=== PATIENT | male | born 1950 | race Caucasian/White ===

== ENCOUNTER 2020-03-02 10:11 | Inpatient (IN) | payer MEDICARE, BC ==
[~2020-03-02] VITALS: Ht 167.6 cm; Wt 81.9 kg
[2020-03-02 10:38] LABS: BASOPHILS ABSOLUTE AUTO 0.06 K/mm3 (0.00-0.23); BASOPHILS PERCENT AUTO 1 % (0-2); EOSINOPHILS ABSOLUTE AUTO 0.11 K/mm3 (0.00-0.68); EOSINOPHILS PERCENT AUTO 1 % (0-6); Hematocrit 45.7 % (37.0-53.0); IMMATURE GRAN ABSOLUTE AUTO 0.05 K/mm3 (0.00-0.10); IMMATURE GRAN PERCENT AUTO 1 % (0-1); LYMPHOCYTES ABSOLUTE AUTO 1.82 K/mm3 (0.84-5.20); LYMPHOCYTES PERCENT AUTO 22 % (21-46); MONOCYTES ABSOLUTE AUTO 0.61 K/mm3 (0.16-1.47); MONOCYTES PERCENT AUTO 7 % (4-13); Mean Corpuscular HGB 30.4 pg (26.0-34.0); Mean Corpuscular HGB Conc 32.8 g/dL (31.5-36.5); Mean Corpuscular Volume 93 fL (80-100); Mean Platelet Volume 9.8 fL (9.1-12.4); NEUTROPHILS ABSOLUTE AUTO 5.63 K/mm3 (1.96-9.15); NEUTROPHILS PERCENT AUTO 68 % (41-73); Platelet Count 250 K/mm3 (150-400); RDW Coefficient Variation 12.6 % (11.7-14.2); RDW Standard Deviation 42.9 fL (35.1-46.3); Red Blood Cell Count 4.94 M/mm3 (4.30-5.90); White Blood Cell Count 8.28 K/mm3 (4.00-11.30)
[2020-03-02 10:49] LABS: Alanine Aminotransfer (ALT/SGP 57 U/L (12-78); Albumin, Blood 4.1 g/dL (3.4-5.0); Albumin/Globulin Ratio 1.1 (0.8-1.8); Anion Gap 5 mmol/L (6-16); Aspartate Aminotrans (AST/SGOT 45 U/L (12-37); Bilirubin, Total 0.5 mg/dL (0.1-1.0); Blood Urea Nitrogen 15 mg/dL (8-24); Bun/Creatinine Ratio 14.7 (12.0-20.0); CO2, Blood 26 mmol/L (21-32); Calcium, Blood 9.3 mg/dL (8.5-10.1); Chloride, Blood 110 mmol/L (98-108); Creatinine, Blood 1.02 mg/dL (0.60-1.20); Globulin, Blood 3.6 g/dL (2.2-4.0); Glomerular Filtration Rate >60 (60-); Glucose, Blood 130 mg/dL (70-99); Potassium, Blood 4.4 mmol/L (3.5-5.5); Sodium, Blood 141 mmol/L (136-145); Total Protein, Blood 7.7 g/dL (6.4-8.2)
[2020-03-02 10:50] LABS: Alk Phos 61 U/L (50-136)
[2020-03-02] MEDS ORDERED: METF500 PO (10:52)
[2020-03-02] MEDS ORDERED: LISI20 PO (10:53)
[2020-03-02] MEDS ORDERED: Aspir 8181 MG PO (10:53)
[2020-03-02] MEDS ORDERED: VITAMIN D31000 UNI1 PO (10:54)
[2020-03-02 12:14] LABS: International Normalized Ratio 0.96; Prothrombin Time Results 10.3 Sec (9.7-11.5)
--- NOTE | 2020-03-02 15:24 | NUR ---
PT IN [facility] WITH PRESENT, ECHO ONGOING, RAPID COVID TEST SENT TO LAB PER DR DAVIS, ANGIO REPORT FAXED TO DR BRAR/CARDIAC SURGERY, WAITING ON PCU 2 ROOM AVAILABILITY NOW, REPORT CALLED TO PCU 2 RN.
--- NOTE | 2020-03-02 16:03 | NUR ---
COVID TEST NEGATIVE. RESULTS AND FACE SHEET FAXED TO [facility]. CBG 111.
--- NOTE | 2020-03-02 16:15 | NUR ---
2 CC AIR REMOVED FROM TR BAND. NO BLEEDING AT SITE. DENIES CHEST PAIN OR PRESSURE.
--- NOTE | 2020-03-02 16:38 | NUR ---
REMAINDER OF AIR REMOVED FROM TR BAND. NO BLEEDING AT SITE. TR BAND TO ROOM AIR.
--- NOTE | 2020-03-02 17:17 | NUR ---
Pt arrived from [facility], accompanyied by Jenae Amanda. Heparin gtt running at 21.3 cc/hour; 13 u/kg/hr. Pt is awake and pleasant. States that he doesn't want to eat because he is afraid that being in the ambulance will make him nauseated and he's afraid that he might vomit. TR band site noted, TR band fully deflated and in place, without any bleeding, bruising, hematoma or swelling. White immobilizer board is in place and the pt verbalized understanding of need to not use his right wrist/hand at this time.
--- NOTE | 2020-03-02 17:35 | NUR ---
sPOKE WITH DR. KOWALSKI WHO CALLED TO CHECK ON THE PT'S STATUS AT THIS TIME. PT DENIES ANY PAIN/DISCOMFORT EXCEPT FOR A HEADACHE, WHICH COULD BE FROM THE NTG PATCH HE HAS ON HIS LEFT CHEST. HEPARIN GTT IS INFUSING.
--- NOTE | 2020-03-02 18:07 | NUR ---
Pt was transported via ambulance stretcher from [facility] by [employer] supervisor and EMT to go to [facility] for CABG. Report was called at this time to CATALINA Matthews at [facility]. The pt reports no discomfort and has no complaints at time of transfer. he was able to stand, walk to the stretcher and get on it himself independently. Expresses some apprehension about the surgery itself.
== END 2020-03-02 18:00 | disposition short-term general hospital (02) | DRG 281 ==
LOC: ER 10:11 → ICUW 15:06 → PCU 16:57
PROVIDERS: Emergency Medicine; ADMIT Internal Medicine Interventional Cardiology
PROC: 4A023N7 Measurement of Cardiac Sampling and Pressure, Left Heart, Percutaneous Approach (ICD-10-PCS; principal; 2020-03-02)
PROC: B2111ZZ Fluoroscopy of Multiple Coronary Arteries using Low Osmolar Contrast (ICD-10-PCS; 2020-03-02)
DX: I21.4 Non-ST elevation (NSTEMI) myocardial infarction (principal); I16.1 Hypertensive emergency; Q21.1 Atrial septal defect; E11.9 Type 2 diabetes mellitus without complications; I10 Essential (primary) hypertension; E78.5 Hyperlipidemia, unspecified; Z79.84 Long term (current) use of oral hypoglycemic drugs; I45.10 Unspecified right bundle-branch block; I25.10 Atherosclerotic heart disease of native coronary artery without angina pectoris
CPT/HCPCS: 36415; 71046; 76937; 80053; 82947; 84484; 85025; 85347; 85610; 85730; 92953; 93005; 93010; 93308; 93321; 93458; 96365-59; 96375-59; 99152; 99153; 99285-25; A9270-GY; C1769; C1894; J1644; J2250; J2270; J3010; J7030; J7050; Q9967; U0002